=== PATIENT | female | born 1990 | race Caucasian/White ===

== ENCOUNTER 2017-01-24 13:15 | Emergency (ER) | payer SELFPAY ==
[2017-01-24] MEDS ORDERED: IBUPROFEN 600 MG TABLET ONE (15:41)
[2017-01-24] MEDS ORDERED: HYDROCODONE/ACETAMINOPHEN 5/325MG TABLET ONE (15:42)
== END 2017-01-24 15:47 | disposition home or self-care (01) ==
LOC: ED 13:15
DX: K08.89 Other specified disorders of teeth and supporting structures (principal)
CPT/HCPCS: 99283 ×2; A9270 ×2